=== PATIENT | female | born 1940 | race Caucasian/White ===

== ENCOUNTER → 2024-03-12 10:34 | Outpatient (REF) | payer MEDICARE, BC, SELFPAY | LOC: HWRAD 10:34 | PROVIDERS: ATTENDING PHYSICIAN Physician Assistant Medical | DX: M81.0 Age-related osteoporosis without current pathological fracture (principal); Z12.31 Encounter for screening mammogram for malignant neoplasm of breast | CPT/HCPCS: 77063; 77067; 77080 ==